=== PATIENT | male | born 1970 ===

== ENCOUNTER 2022-11-01 09:45 | Inpatient (IN) | payer OTHER ==
[~2022-11-01] VITALS: Ht 185.4 cm; Wt 111.1 kg
[2022-11-06] MEDS ORDERED: PERCOCET 5-3251 EACH PO (09:03)
[2022-11-06] MEDS ORDERED: NEURONTIN300 MG PO (09:03)
== END 2022-11-06 16:56 | disposition home or self-care (01) | DRG 330 ==
LOC: O/R 11-03 08:07 → SURG 11-03 09:45
PROVIDERS: ADMIT Colon & Rectal Surgery; ATTEND Colon & Rectal Surgery
PROC: 0DBP4ZZ Excision of Rectum, Percutaneous Endoscopic Approach (ICD-10-PCS; 2022-11-03)
PROC: 0TQB4ZZ Repair Bladder, Percutaneous Endoscopic Approach (ICD-10-PCS; 2022-11-03)
PROC: 0DUU47Z Supplement Omentum with Autologous Tissue Substitute, Percutaneous Endoscopic Approach (ICD-10-PCS; 2022-11-03)
PROC: 0DJD8ZZ Inspection of Lower Intestinal Tract, Via Natural or Artificial Opening Endoscopic (ICD-10-PCS; 2022-11-03)
PROC: 0TBB4ZZ Excision of Bladder, Percutaneous Endoscopic Approach (ICD-10-PCS; 2022-11-03)
PROC: 4A12X4Z Monitoring of Cardiac Electrical Activity, External Approach (ICD-10-PCS; 2022-11-03)
PROC: 0DTN4ZZ Resection of Sigmoid Colon, Percutaneous Endoscopic Approach (ICD-10-PCS; principal; 2022-11-03 09:00)
DX: K57.20 Diverticulitis of large intestine with perforation and abscess without bleeding (principal); K92.1 Melena; N32.1 Vesicointestinal fistula; G47.30 Sleep apnea, unspecified; K66.0 Peritoneal adhesions (postprocedural) (postinfection); Z20.822 Contact with and (suspected) exposure to COVID-19